=== PATIENT | female | born 1975 | race African-American/Black ===

== ENCOUNTER 2020-06-02 12:00 | Emergency (ER) | payer SELFPAY ==
[2020-06-02 14:34] LABS: #Eosinphils 0.3 thou/uL (0.0-0.7); #Lymphocytes 1.7 thou/uL (1.20-3.40); #Monocytes 0.4 thou/uL (0.11-0.59); #Neutrophils 2.9 thou/uL (1.40-6.50); %Basophils 0.7 % (0.0-1.0); %Eosinophils 5.5 % (0.0-10.0); %Lymphocytes 31.9 % (21.0-51.0); %Monocytes 7.7 % (0.0-10.0); %Neutrophils 54.2 % (42.0-75.0); Hemoglobin 13.1 g/dL (12.0-16.0); Mean Corpuscular HGB CONC 33.7 g/dL (32.0-36.0); Mean Corpuscular Hemoglobin 30.6 pg (27.0-31.0); Mean Corpuscular Volume 90.7 fL (78.0-98.0); Mean Platelet Volume 9.5 fL (7.4-10.4); Platelet Count 258 thou/uL (130-400); RBC Distribution Width 11.5 % (11.5-14.5); Red Blood Cell (RBC) Count 4.28 mill/uL (4.20-5.40); White Blood Cell (WBC) Count 5.3 thou/uL (4.8-10.8)
--- NOTE | 2020-06-02 14:36 | CT ---
Exam: Head CT without contrast HISTORY: Progressive left-sided weakness. COMPARISON: none FINDINGS: Hemorrhage: No intraparenchymal hemorrhage or extra-axial hematoma. Brain parenchyma: Cortical patiño-white matter differentiation is preserved. No mass effect or midline shift. Basilar cisterns are patent. Ventricular system: Ventricles and sulci are patent and symmetric. Calvarium: Intact. Sinuses and mastoid air cells: Adequate aeration. IMPRESSION: No acute intracranial process.
[2020-06-02 14:50] LABS: ALT (SGPT) 34 U/L (8-55); AST (SGOT) 27 U/L (5-34); Albumin 4.1 g/dL (3.5-5.0); Alkaline Phosphatase 68 U/L (40-110); Anion Gap 11 mmol/L (10-20); BUN (Urea Nitrogen) 9 mg/dL (7.0-18.7); Bilirubin, Total 0.3 mg/dL (0.2-1.2); Calc. Creatinine Clearance 0 mL/min (70-130); Calcium 9.1 mg/dL (7.8-10.44); Carbon Dioxide 26 mmol/L (22-29); Chloride 101 mmol/L (98-107); Estimated GFR-MDRD Greater than 90; Globulin 3.7 g/dL (2.4-3.5); Glucose 98 mg/dL (70-105); Potassium 3.7 mmol/L (3.5-5.1); Protein, Total 7.8 g/dL (6.0-8.3); Sodium 134 mmol/L (136-145)
[2020-06-02 15:15] LABS: Bilirubin Negative (Negative); Blood, Urine Negative (Negative); Clarity Clear (Clear); Glucose, Urine (Dipstick) Normal (Negative); Ketone, Urine Negative (Negative); Leukocyte Negative Leu/uL (Negative); Nitrite Negative (Negative); Protein, Urine (Dipstick) Negative (Neg-Trace); pH, Urine 7.5 (5.0-9.0)
--- NOTE | 2020-06-02 16:05 | CT ---
CT of thelumbar spine without contrast: 06/02/2020 COMPARISON:None available HISTORY:Left-sided weakness, pain TECHNIQUE: Serial axial CT imaging at2.5 mm intervals from thelower thoracic spine through the sacrum without contrast. Coronal and sagittal reformatted imaging obtained. Findings:Evaluation for central canal and/or neural foraminal stenosis is limited on routine CT exam. Lumbar vertebral body height and alignment appears within normal limits. T12-L1: No osseous cause of significant central canal or neural foraminal stenosis. Mild left facet h ypertrophy. L1-2: Mild bilateral facet hypertrophy. No osseous cause of significant central canal or neural irving inal stenosis. L2-3: Mild right facet hypertrophy. No osseous cause of significant central canal or neural foraminal stenosis. L3-4: No osseous cause of significant central canal or neural foraminal stenosis L4-5: Mild bilateral facet hypertrophy with no osseous cause of significant central canal or neural f oraminal stenosis. L5-S1: Bilateral facet hypertrophy. Minimal disc bulge. No osseous cause of significant central canal or neural foraminal stenosis. No worrisome lytic or blastic bone lesion. No acute fracture or evidence of dislocation. Impression:Multilevel lumbar spine degenerative change with no acute osseous abnormality. No osseous cause of significant central canal or neural foraminal stenosis. If symptoms persist a follow-up nonemergent lumbar spine MRI is suggested.
== END 2020-06-02 16:37 | disposition home or self-care (01) ==
LOC: ERS 12:00
DX: R53.1 Weakness (principal); F17.210 Nicotine dependence, cigarettes, uncomplicated; J45.909 Unspecified asthma, uncomplicated; Z79.899 Other long term (current) drug therapy
CPT/HCPCS: 70450; 72131; 80053; 81003; 84484; 85025; 93005